=== PATIENT | female | born 1995 | race Caucasian/White ===

== ENCOUNTER 2019-01-06 10:37 | Emergency (ER) | payer OTHER ==
[2019-01-06 10:59] VITALS: BP 110/80
--- NOTE | 2019-01-06 11:12 | UC ---
Ear Complaint HPI - HPI Summary HPI Summary: wORsening L ear pain. nothing makes it better/worse. has not been sick. denies putting fb inside. denies swimming. denies change in hearing. - History of Current Complaint Chief Complaint: UCEar Stated Complaint: LEFT EAR COMPLAINT Time Seen by Provider: 01/06/19 10:53 Hx Last Menstrual Period: DECEMBER 2017; HAD BABY IN SEPTEMBER 2018 Onset/Duration: Sudden Onset Pain Intensity: 0 Pain Scale Used: 0-10 Numeric Aggravating Factors: Nothing Alleviating Factors: Nothing - Allergies/Home Medications Allergies/Adverse Reactions: Allergies Allergy/AdvReac Type Severity Reaction Status Date / Time cephalexin [From Keflex] Allergy Hives Verified 01/06/19 10:54 Penicillins Allergy Hives Verified 01/06/19 10:54 PMH/Surg Hx/FS Hx/Imm Hx - Additional Past Medical History Additional PMH: NURSING Previously Healthy: Yes - Surgical History Surgical History: Yes Surgery Procedure, Year, and Place: , SEPTEMBER 2017 - Family History Known Family History: Positive: Cardiac Disease, Hypertension - Social History Alcohol Use: Weekly Alcohol Amount: ONCE A WEEK Substance Use Type: None Smoking Status (MU): Never Smoked Tobacco Review of Systems All Other Systems Reviewed And Are Negative: Yes Constitutional: Negative: Fever Skin: Negative: Rash ENT: Positive: Ear Ache. Negative: Sore Throat, Sinus Congestion Respiratory: Positive: Negative Cardiovascular: Positive: Negative Physical Exam Triage Information Reviewed: Yes Appearance: Well-Appearing Vital Signs: Initial Vital Signs Temp 98.2 F 01/06/19 10:55 Pulse 66 01/06/19 10:55 Resp 16 01/06/19 10:55 BP 110/80 01/06/19 10:55 Pulse Ox 99 01/06/19 10:55 Vital Signs Reviewed: Yes Eyes: Positive: Conjunctiva Clear ENT: Positive: TMs normal, Other - L canal with inflammation, debris, pain w/ otoscope insertion. R canal NL Neck: Positive: Supple, Nontender, No Lymphadenopathy Respiratory Exam: Normal Cardiovascular Exam: Normal Ear Complaint Course/Dx - Course Course Of Treatment: L ear pain x 1 wk , worsening. ON exam OE, mild case. Of note she is nursing. plan is to use ciprodex for 7 days and topical so low risk. no change in hearing. vitals good. - Differential Dx/Diagnosis Provider Diagnosis: Otitis externa Discharge - Sign-Out/Discharge Documenting (check all that apply): Patient Departure All imaging exams completed and their final reports reviewed: No Studies - Discharge Plan Condition: Good Disposition: HOME Prescriptions: Ciproflox/Dexameth OTIC.SUSP* [Ciprodex OTIC.SUSP*] 1 drop .SEE ORDER BID 7 Days #1 btl Patient Education Materials: Otitis Externa (ED) Referrals: Reba Slater [Primary Care Provider] - Additional Instructions: If not improving please follow up with your pcp. - Billing Disposition and Condition Condition: GOOD Disposition: Home - Attestation Statements Provider Attestation: Per institutional requirements, I have reviewed the chart, however, I was not consulted specifically or made aware of this patient by the midlevel provider. I did not personally evaluate, interact with , or disposition this patient.
== END 2019-01-06 11:18 | disposition home or self-care (01) ==
LOC: UCCORT 10:37
DX: H60.92 Unspecified otitis externa, left ear (principal); Z88.0 Allergy status to penicillin; Z88.1 Allergy status to other antibiotic agents
CPT/HCPCS: 99212; G0463

== ENCOUNTER 2019-02-11 14:10 | Emergency (ER) | payer OTHER ==
[2019-02-11 14:26] VITALS: BP 117/61
--- NOTE | 2019-02-11 14:42 | UC ---
- HPI Summary HPI Summary: Pt presents with c/o sudden onset of left breast pain, tenderness, mild erythema and tender firm area. Pt is breast feeding (baby is 4 and 1/2 months) and nursing well on both breast. - History of Current Complaint Hx Obtained From: Patient Breast Chief Complaint: Pain, Left, Inflammation, Color Changes - mild erythema , Other: - palpable firm area Onset/Duration: Started Hours Ago, Atraumatic, Still Present Timing: Constant Breast Pain Radiates To: Left Breast Pain Aggravating Factors: Palpation Breast Pain Alleviating Factors: Nothing Breast Associated Signs/Symptoms: Fever, Warmth - Additional Pertinent History Breast History: First Time - baby is 4 and 1/2 months - Allergy/Home Medications Allergies/Adverse Reactions: Allergies Allergy/AdvReac Type Severity Reaction Status Date / Time cephalexin [From Keflex] Allergy Hives Verified 02/11/19 14:21 Penicillins Allergy Hives Verified 02/11/19 14:21 Home Medications: Home Medications Ibuprofen TAB* [Advil TAB*] 200 mg PO Q6H PRN 02/11/19 [History Confirmed ] PMH/Surg Hx/FS Hx/Imm Hx Previously Healthy: Yes - Surgical History Surgical History: Yes Surgery Procedure, Year, and Place: , SEPTEMBER 2017 - Family History Known Family History: Positive: Cardiac Disease, Hypertension - Social History Occupation: Employed Full-time, Works From/At Home Lives: With Family Alcohol Use: Rare Alcohol Amount: ONCE A WEEK Substance Use Type: None Smoking Status (MU): Never Smoked Tobacco Have You Smoked in the Last Year: No - Immunization History Vaccination Up to Date: Yes Review of Systems All Other Systems Reviewed And Are Negative: Yes Constitutional: Positive: Fever, Chills Skin: Positive: Other - mild erythema Eyes: Positive: Negative ENT: Positive: Negative Respiratory: Positive: Negative Cardiovascular: Positive: Negative Gastrointestinal: Positive: Negative Motor: Positive: Negative Neurovascular: Positive: Negative Musculoskeletal: Positive: Negative Neurological: Positive: Negative Psychological: Positive: Negative Is Patient Immunocompromised?: No Physical Exam Triage Information Reviewed: Yes Appearance: Well-Appearing Vital Signs: Initial Vital Signs Temp 101.3 F 02/11/19 14:22 Pulse 120 02/11/19 14:22 Resp 18 02/11/19 14:22 BP 117/61 02/11/19 14:22 Pulse Ox 99 02/11/19 14:22 Vital Signs Reviewed: Yes Eye Exam: Normal ENT: Positive: Hearing grossly normal Dental Exam: Normal Neck exam: Normal Respiratory: Positive: No respiratory distress Cardiovascular: Positive: Tachycardia Musculoskeletal Exam: Normal Musculoskeletal: Positive: No Edema Psychological Exam: Normal Skin Exam: Other - left breast, mild erythema, warm to touch. Pt states that she feels well. Breast Pain Course/Dx - Course Course Of Treatment: I discussed with the pt the need to seek medical care immediately if her symptoms worsened. Pt verbalized understanding and agreed to plan of care. - Differential Diagnoses Differential Diagnosis/HQI/PQRI: Breast Abscess, Mastitis - Diagnoses Provider Diagnoses: Acute mastitis of left breast Discharge - Sign-Out/Discharge Documenting (check all that apply): Patient Departure All imaging exams completed and their final reports reviewed: No Studies - Discharge Plan Condition: Stable Disposition: HOME Prescriptions: Sulfamethox/Trimethoprim DS* [Bactrim DS 800/160 TAB*] 1 tab PO Q12H #20 tab Patient Education Materials: Mastitis (ED) Referrals: Reba Slater [Primary Care Provider] - If Needed Additional Instructions: Please make sure you are drinking plenty or water, massaging the affected breast and if your symptoms worsen please go directly to the closest emergency room immediately. - Billing Disposition and Condition Condition: STABLE Disposition: Home
[2019-02-11] MEDS ORDERED: Acetaminophen TAB* 325 MG PO ONE (14:46)
[2019-02-11] MEDS ORDERED: Sulfamethox/Trimethoprim DS 800/160* TAB PO ONE (14:46)
== END 2019-02-11 14:55 | disposition home or self-care (01) ==
LOC: UCCORT 14:10
DX: N61.0 Mastitis without abscess (principal)
CPT/HCPCS: 99212; A9270-GY; G0463